=== PATIENT | female | born 1990 | race Two or more races ===

== ENCOUNTER 2020-07-20 01:12 | Emergency (ER) | payer OTHER ==
[~2020-07-20] VITALS: Ht 162.6 cm; Wt 90.7 kg
[2020-07-20 01:12] VITALS: BP 141/85
--- NOTE | 2020-07-20 01:50 | NUR ---
[facility] SWABBED, SENT TO LAB.
--- NOTE | 2020-07-20 02:45 | NUR ---
pt was discharged to [facility] in custody in stable condition.
== END 2020-07-20 02:45 ==
LOC: ER 01:14
DX: Z02.89 Encounter for other administrative examinations (principal); Z20.822 Contact with and (suspected) exposure to COVID-19
CPT/HCPCS: 87426; 99283; C9803